=== PATIENT | male | born 1980 | race Caucasian/White ===

== ENCOUNTER 2020-05-29 16:41 | Emergency (ER) | payer OTHER ==
[~2020-05-29] VITALS: Ht 175.3 cm; Wt 96.3 kg
[2020-05-29] MEDS ORDERED: XIID5DRO OP (17:03)
[2020-05-29] MEDS ORDERED: MULTCAP PO (17:03)
--- NOTE | 2020-05-29 18:00 | ECGEPIP ---
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
[2020-05-29 18:04] LABS: BASO # 0.1 10^3/uL (0.0-0.2); BASO % 0.6 % (0.0-1.0); EOS # 0.4 10^3/uL (0.0-0.5); HEMATOCRIT 49.6 % (42.0-52.0); HEMOGLOBIN 17.2 g/dl (13.5-17.5); LYMPH # 2.3 10^3/uL (1.5-5.0); MEAN CORPUSCULAR HEMOGLOBIN 30.6 pg (27.0-33.0); MEAN CORPUSCULAR HGB CONC 34.7 g/dl (32.0-36.5); MEAN CORPUSCULAR VOLUME 88.1 fl (80.0-96.0); MONO # 1.2 10^3/uL (0.0-0.8); MONO % 6.3 % (0.0-5.0); NEUTROPHILS # 14.9 10^3/uL (1.5-8.5); NEUTROPHILS % 78.6 % (36.0-66.0); PLATELET COUNT, AUTOMATED 295 10^3/uL (150-450); RED BLOOD COUNT 5.63 10^6/uL (4.30-6.10); WHITE BLOOD COUNT 18.9 10^3/uL (4.0-10.0)
[2020-05-29 18:08] LABS: ALBUMIN 4.2 GM/DL (3.2-5.2); ALT/SGPT 50 U/L (12-78); BILIRUBIN,DIRECT 0.2 MG/DL (0.0-0.2); BILIRUBIN,TOTAL 0.4 MG/DL (0.2-1.0); BLOOD UREA NITROGEN 14 MG/DL (7-18); CALCIUM LEVEL 9.5 MG/DL (8.5-10.1); CARBON DIOXIDE LEVEL 26 MEQ/L (21-32); CHLORIDE LEVEL 105 MEQ/L (98-107); CREATININE FOR GFR 0.93 MG/DL (0.70-1.30); GLOMERULAR FILTRATION RATE > 60.0 (>60); GLUCOSE, FASTING 80 MG/DL (70-100); LIPASE 218 U/L (73-393); POTASSIUM SERUM 4.2 MEQ/L (3.5-5.1); SODIUM LEVEL 138 MEQ/L (136-145); TOTAL PROTEIN 7.5 GM/DL (6.4-8.2)
[2020-05-29] MEDS ORDERED: ONDANSETRON 4MG/2ML VIAL IV ONE (18:15)
[2020-05-29] MEDS: MORPHINE 4 MG/ML 1ML VIAL/SYRINGE (J2270) IV PRN ×2 (18:26→20:28)
[2020-05-29] MEDS ORDERED: PANTOPRAZOLE 40MG VIAL (C9113 PER 1) IV ONE (19:00)
--- NOTE | 2020-05-29 20:09 | REPVR ---
PROCEDURE INFORMATION: Exam: US Abdomen, Limited; Right Upper Quadrant Exam date and time: 05/29/2020 7:38 PM Age: 40 years old Clinical indication: Abdominal pain; Acute; Additional info: Epigastric pain R/O biliary colic TECHNIQUE: Imaging protocol: US abdomen. Real time ultrasound with image documentation. Limited exam focused on the right upper quadrant. COMPARISON: No relevant prior studies available. FINDINGS: Liver: Mildly echogenic, consistent with fatty infiltration. Gallbladder: No gallstones. No gallbladder wall thickening or pericholecystic fluid. Negative sonographic Kirkpatrick's sign, as per the performing bucket chucker. Common bile duct: No stones. No ductal dilatation. Pancreas: Suboptimally visualized. Right kidney: No mass. No definite stones. No hydronephrosis. IMPRESSION: Fatty liver. Electronically signed by: Juan Carlos Sommer On 05/29/2020 20:09:30 PM
[2020-05-29] MEDS ORDERED: ISOVUE-370 76% 100ML VIAL As Ordered ONE (21:32)
[2020-05-29] MEDS ORDERED: MORPHINE 4 MG/ML 1ML VIAL/SYRINGE (J2270) IV PRN (21:45)
[2020-05-29] MEDS ORDERED: GI COCKTAIL 50ML BTL(HYOSCYAMINE/MAALOX/LIDOCAINE VISCOUS)(1:3:1) PO ONE (21:45)
[2020-05-29] MEDS ORDERED: NS 1,000 ML IV ONE (21:45)
--- NOTE | 2020-05-29 22:16 | REPVR ---
PROCEDURE INFORMATION: Exam: CT Abdomen And Pelvis With Contrast Exam date and time: 05/29/2020 9:51 PM Age: 40 years old Clinical indication: Abdominal pain; Generalized TECHNIQUE: Imaging protocol: Computed tomography of the abdomen and pelvis with intravenous contrast. Axial, coronal and sagittal reformatted images were created and reviewed. Radiation optimization: All CT scans at this facility use at least one of these dose optimization techniques: automated exposure control; mA and/or kV adjustment per patient size (includes targeted exams where dose is matched to clinical indication); or iterative reconstruction. Contrast material: ISOVUE 370; Contrast volume: 100 ml; Contrast route: INTRAVENOUS (IV); COMPARISON: GALLBLADDER US 05/29/2020 7:23 PM FINDINGS: Lungs: Mild linear stranding and groundglass at the lung bases, likely due to atelectasis and/or scarring. Liver: Diffuse hepatic steatosis. Indeterminate 2.4 x 1.9 cm low-density lesion in the right hepatic lobe. Gallbladder and bile ducts: No radiodense gallstones. No biliary ductal dilatation. Pancreas: Unremarkable. Spleen: Unremarkable. Adrenals: Unremarkable. Kidneys and ureters: No mass. No radiodense calculi. No hydronephrosis. Stomach and bowel: Scattered colonic diverticula without evidence of diverticulitis. No obstruction. No bowel wall thickening. No pneumatosis. Appendix: Normal. Intraperitoneal space: No free fluid. No organized fluid collection. No free air. Vasculature: Unremarkable. No aneurysm. Lymph nodes: No pathologically enlarged lymph nodes. Bladder: Unremarkable. Reproductive: Unremarkable. Bones/joints: No acute osseous abnormality. Soft tissues: Fat containing inguinal hernias. IMPRESSION: 1. No CT evidence of acute intra-abdominal or pelvic pathology. 2. Indeterminate 2.4 x 1.9 cm low-density lesion in the right hepatic lobe. If clinically indicated, multiphasic CT scan or MRI may be obtained. 3. Additional findings, as above. Electronically signed by: Juan Carlos Sommer On 05/29/2020 22:15:48 PM
[2020-05-29 22:17] VITALS: BP 125/80
[2020-05-29] MEDS ORDERED: OMEP40CA97 PO (23:58)
[2020-05-29] MEDS ORDERED: SUCR1SS PO (23:58)
[2020-05-29] MEDS ORDERED: NORC1TAB7 PO (23:58)
--- NOTE | 2020-05-30 06:43 | ED PDOC ---
Post-Departure Follow-Up ct abd/p faxed to [facility] for fu Rachelle Butler MD May 30, 2020 06:43
--- NOTE | 2020-05-30 07:18 | REP ---
Clinical: Acute chest pain . Comparison: None . Findings: The mediastinum and cardiac silhouette are stable and within normal limits for portable technique. The lung haynes are clear without acute consolidation, effusion, or pneumothorax. Skeletal structures are intact. Impression: No acute cardiopulmonary process appreciated. Electronically Signed by Subhash Pelayo MD 05/29/2020 05:27 P
== END 2020-05-30 01:55 | disposition home or self-care (01) ==
LOC: M ED 16:41
DX: R10.13 Epigastric pain (principal); R94.31 Abnormal electrocardiogram [ECG] [EKG]; K76.89 Other specified diseases of liver; K76.0 Fatty (change of) liver, not elsewhere classified; K21.9 Gastro-esophageal reflux disease without esophagitis; Z88.0 Allergy status to penicillin; Z88.2 Allergy status to sulfonamides; Z79.899 Other long term (current) drug therapy
CPT/HCPCS: 36415; 71045; 74177; 76705; 80048; 80076; 83690; 84484; 85025; 93005; 93041; 94760; 96361; 96374; 96375; 96376; 99285; C9113; J2270; J2405; Q9967